=== PATIENT | male | born 1990 | race Caucasian/White ===

== ENCOUNTER 2017-05-24 03:12 | Emergency (ER) | payer SELFPAY ==
--- NOTE | 2017-05-24 03:16 | EDPHY ---
H & P Source: Patient Exam Limitations: No limitations - Medical/Surgical History Hx Asthma: No Hx Chronic Respiratory Disease: No Hx Diabetes: No Hx Cardiac Disease: No Hx Renal Disease: No Hx Cirrhosis: No Hx Alcoholism: No - Family History Significant Family History: No pertinent family hx - Social History Alcohol Use: Occasionally Drug Use: None Time Seen by Provider: 05/24/17 03:13 HPI/ROS: CHIEF COMPLAINT: Suicidality HISTORY OF PRESENT ILLNESS: Patient is a 26-year-old man who comes to the emergency department with police of placed him on a hold. The patient stated that he was going to shoot himself in the head and has several guns in his home. His girlfriend locked up the goes called police. The patient states that he has suffered with depression and suicidality since he was a kid. His brother shot himself when the patient was 6 years old. Patient's dad has been missing for the last 2 months. He has been drinking today but denies any drug use. He refuses to take any medication and does not currently have a counselor or therapist. REVIEW OF SYSTEMS: Constitutional: denies: chills, fever, recent illness, recent injury EENTM: denies: blurred vision, double vision, nose congestion Respiratory: denies: cough, shortness of breath Cardiac: denies: chest pain, irregular heart rate, lightheadedness, palpitations Gastrointestinal/Abdominal: denies: abdominal pain, diarrhea, nausea, vomiting, blood streaked stools Genitourinary: denies: dysuria, frequency, hematuria, pain Musculoskeletal: denies: joint pain, muscle pain Skin: denies: lesions, rash, jaundice, bruising Neurological: denies: headache, numbness, paresthesia, tingling, dizziness, weakness Hematologic/Lymphatic: denies: blood clots, easy bleeding, easy bruising Immunologic/allergic: denies: HIV/AIDS, transplant EXAM: GENERAL: Well-appearing, well-nourished and in no acute distress. HEAD: Atraumatic, normocephalic. EYES: Pupils equal round and reactive to light, extraocular movements intact, sclera anicteric, conjunctiva are normal. ENT: TMs normal, nares patent, oropharynx clear without exudates. Moist mucous membranes. NECK: Normal range of motion, supple without lymphadenopathy or JVD. LUNGS: Breath sounds clear to auscultation bilaterally and equal. No wheezes rales or rhonchi. HEART: Regular rate and rhythm without murmurs, rubs or gallops. ABDOMEN: Soft, nontender, normoactive bowel sounds. No guarding, no rebound. No masses appreciated. BACK: No CVA tenderness, no spinal tenderness, step-offs or deformities EXTREMITIES: Normal range of motion, no pitting or edema. No clubbing or cyanosis. NEUROLOGICAL: Cranial nerves II through XII grossly intact. Normal speech, normal gait. 5/5 strength, normal movement in all extremities, normal sensation PSYCH: Normal mood, normal affect. Polite, answers all questions appropriately SKIN: Warm, dry, normal turgor, no visible rashes or lesions. (Jesus Rouse) Constitutional: Initial Vital Signs Temperature (C) 36.7 C 05/24/17 03:15 Heart Rate 66 05/24/17 03:15 Respiratory Rate 16 05/24/17 03:15 Blood Pressure 138/84 H 05/24/17 03:15 O2 Sat (%) 96 05/24/17 03:15 O2 Delivery Mode Room Air Allergies/Adverse Reactions: No Known Allergies Allergy (Unverified 05/24/17 03:37) Home Medications: Medication Instructions Recorded NK [No Known Home Meds] 05/24/17 Medical Decision Making ED Course/Re-evaluation: 7:00 a.m.-I assumed care of this patient at shift change. Mental health evaluation in progress. 8am-mental health hold has been vacated by Dr. Cross. Patient denies suicidal ideation and has contracted for safety. The guns have been removed from his home by PD and he has does not have access to guns. He has no prior history of mental health issues. I spoke to the patient at length and agree that he is not suicidal. I feel that he is safe and stable for discharge home. (Makeda Walters) 6:50 a.m. the patient is medically clear, awaiting psychiatric evaluation. Care transferred to Dr. Makeda Walters at shift change. (Jesus Rouse) Differential Diagnosis: Partial list of the Differential diagnosis considered include but were not limited to; depression, suicidality, substance abuse and although unlikely based on the history and physical exam, I also considered head injury, infection. (Jesus Rouse) - Data Points Laboratory Results: Laboratory Results 05/24/17 03:35 05/24/17 03:35 Departure - Departure Disposition: Home, Routine, Self-Care Clinical Impression: Suicidal ideation Alcohol intoxication Qualifiers: Complication of substance-induced condition: uncomplicated Qualified Code(s): F10.920 - Alcohol use, unspecified with intoxication, uncomplicated Condition: Good Instructions: Alcohol Intoxication (ED), Suicide Prevention for Adults (ED) Referrals: [facility],. [Clinic] - As per Instructions (Call to make an appointment.)
[2017-05-24 03:37] VITALS: O2SAT 96
[2017-05-24 03:41] LABS: PLATELET COUNT 212 10^3/uL (150-400)
[2017-05-24 08:27] VITALS: BP 114/76; PULSE 57; RESP 12; TEMP 97.5
== END 2017-05-24 08:27 | disposition home or self-care (01) ==
DX: R45.851 Suicidal ideations (principal); F10.920 Alcohol use, unspecified with intoxication, uncomplicated
CPT/HCPCS: 80305; G0480